=== PATIENT | male | born 1965 | race Caucasian/White ===

== ENCOUNTER 2025-01-07 10:33 | Outpatient (CLI) | payer MEDICAID ==
--- NOTE | 2025-01-07 15:01 | RADIOLOGY REPORT ---
Procedure: CT BIOMETSET SHOULDER LEFT 01/07/2025 10:51 AM Indication: PAIN IN LEFT SHOULDER Comparison Study: None Technique: Axial images of the left shoulder were obtained and reformatted in coronal and sagittal pl anes. All CT scans at this medical facility are performed using dose modulation techniques as appropr iate to a performed exam including the following: Automated exposure control was utilized; adjustment of the MA and/or KV according to patient size; and use of iterative reconstruction technique. CT Dos e: CTDI volume is 11 mGy. Dose-length product is 276 mGy*cm FINDINGS: Bones: Absent humeral head. Depression of the posterior glenoid articular surface. There is widening of the glenohumeral joint. Moderate amount of joint effusion noted. Several subcentimeter loose cristal dies are seen within the joint space. The acromioclavicular joint is maintained with mild degenerativ e hypertrophy. Deformity of lateral clavicular shaft reflecting an old healed fracture. An osseous ba nd is noted between posterolateral 3rd and 4th ribs likely heterotopic ossification related to a prio r injury. Mild age-indeterminate anterior compression deformity of T5 with approximately 10% loss of height. Soft tissues: The overlying soft tissues unremarkable. The lungs are clear. IMPRESSION: 1. Absent humeral head , depression of the posterior glenoid, large glenohumeral joint effusion and s everal loose bodies. 2. Old healed fracture of lateral clavicle.
== END 2025-01-07 23:59 | disposition home or self-care (01) ==
LOC: RAD 10:33
PROVIDERS: ATTEND Specialist
DX: M19.012 Primary osteoarthritis, left shoulder (principal); M25.512 Pain in left shoulder; M19.212 Secondary osteoarthritis, left shoulder; M25.312 Other instability, left shoulder; F32.A Depression, unspecified; M25.412 Effusion, left shoulder; M24.012 Loose body in left shoulder
CPT/HCPCS: 73200